=== PATIENT | male | born 1990 | race Caucasian/White ===

== ENCOUNTER → 2018-09-15 12:29 | Outpatient (CLI) | payer OTHER, SELFPAY ==
[2018-09-15 14:08] LABS: Cholesterol 162 mg/dL (200); Glucose 85 mg/dL (74-106); High Density Lipoprotein 47 mg/dL; Triglycerides 71 mg/dL; Very Low Density Lipoprotein 14 mg/dL (5-40)
== END ==
PROVIDERS: Family Provider Family Medicine; PCP Family Medicine; Referring Provider Family Medicine; Visit Provider Family Medicine
DX: Z00.00 Encounter for general adult medical examination without abnormal findings (principal)
CPT/HCPCS: 36415; 80061; 82947